=== PATIENT | female | born 1990 | race Caucasian/White ===

== ENCOUNTER 2017-07-03 07:55 | Emergency (ER) | payer OTHER ==
[~2017-07-03] VITALS: Ht 175.3 cm; Wt 122.5 kg
--- NOTE | 2017-07-03 08:02 | NUR ---
Margot pang in [facility] - 07/03/17 at 0804 by [facility] PT AMBULATED TO BED 3
[2017-07-03 08:03] VITALS: BP 112/63
--- NOTE | 2017-07-03 08:30 | NUR ---
patient is a 26 year old female brought in via private vehicle for c/o nausea, diarrhea and abdominal pain x two days. patient is alert and oriented x 4. respirations are even and unlabored. abdomen is round, soft. tender to left lower abdominal area when palpated. patient states three episodes of diarrhea this morning. patient states that she feels nauseated, but no episodes of vomiting. awaiting md evaluation.
[2017-07-03] MEDS ORDERED: KETOROLAC 60 MG/2 ML VIAL IM ONE (09:00)
[2017-07-03] MEDS ORDERED: LOPERAMIDE 2 MG CAP PO ONE (09:00)
--- NOTE | 2017-07-03 09:44 | NUR ---
Pt expresses feeling much better. Dr. Amaya made aware.
--- NOTE | 2017-07-03 10:22 | NUR ---
Patient discharged with v/s stable. Written and verbal after care instructions given and explained. Patient alert, oriented and verbalized understanding of instructions. Ambulatory with steady gait. All questions addressed prior to discharge. ID band removed. Patient advised to follow up with PMD. Rx of Imodium A-D given. Patient educated on indication of medication including possible reaction and side effects. Opportunity to ask questions provided and answered.
[2017-07-03 10:24] VITALS: BP 122/78
== END 2017-07-03 10:22 | disposition home or self-care (01) ==
LOC: MED 07:55
DX: R19.7 Diarrhea, unspecified (principal); R10.84 Generalized abdominal pain
CPT/HCPCS: 81002; 81025; 96372; 99283; J1885

== ENCOUNTER 2018-03-01 11:18 | Emergency (ER) | payer OTHER ==
[~2018-03-01] VITALS: Ht 172.7 cm; Wt 97.5 kg
[2018-03-01 12:07] VITALS: BP 108/62
--- NOTE | 2018-03-01 13:50 | NUR ---
C/O VAGINAL RASH/PAIN 06/20 THIS MORNING; DENIES DISCHARGE OR PAINFUL URINATION HX; DENIES RX; DENIES
--- NOTE | 2018-03-01 13:50 | NUR ---
PT AMBULATED TO BED 8
--- NOTE | 2018-03-01 14:00 | NUR ---
PA EVALUATING AT BEDSIDE
--- NOTE | 2018-03-01 14:08 | NUR ---
Female Photo Stylist accompanied female patient for VAGINAL EXAM
[2018-03-01 14:32] VITALS: BP 158/92
== END 2018-03-01 14:31 | disposition home or self-care (01) ==
LOC: MED 11:18
DX: N76.2 Acute vulvitis (principal)
CPT/HCPCS: 81002; 81025; 99283

== ENCOUNTER 2018-08-11 14:53 | Emergency (ER) | payer OTHER ==
[~2018-08-11] VITALS: Ht 172.7 cm; Wt 119.5 kg
[2018-08-11 15:05] VITALS: BP 158/100
--- NOTE | 2018-08-11 15:13 | NUR ---
Patient ambulated to bed 4. RN evaluating patient at bedside.
--- NOTE | 2018-08-11 15:22 | NUR ---
DR EVALUATED AT BEDSIDE
--- NOTE | 2018-08-11 15:26 | NUR ---
PT BIB SELF C/O SORE THROAT,R EAR PAIN X YESTERDAY. PT REPORTS PAIN TO R EAR WHEN TOUCHED. DENIES N/V/D OR FEVER. NO REDNESS OR SWELLING VISIBLE FROM OUTSIDE OF EAR. VSS. ER TO SEE PT. MED HX:DENIES
--- NOTE | 2018-08-11 15:55 | NUR ---
FLU SWAB COLLECTED
[2018-08-11] MEDS ORDERED: IBUPROFEN 400 MG TAB PO ONE ×2 (16:10→16:20)
[2018-08-11 16:26] VITALS: BP 152/98
--- NOTE | 2018-08-11 16:26 | NUR ---
Patient discharged with v/s stable. Written and verbal after care instructions given and explained. Patient alert, oriented and verbalized understanding of instructions. Ambulatory with steady gait. All questions addressed prior to discharge. ID band removed. Patient advised to follow up with PMD. Rx of IBUPROFEN, LORATADINE given. Patient educated on indication of medication including possible reaction and side effects. Opportunity to ask questions provided and answered.
== END 2018-08-11 16:26 | disposition home or self-care (01) ==
LOC: MED 14:53
DX: J02.8 Acute pharyngitis due to other specified organisms (principal); H65.91 Unspecified nonsuppurative otitis media, right ear
CPT/HCPCS: 87804; 99283

== ENCOUNTER 2019-03-17 12:16 | Emergency (ER) | payer OTHER ==
[~2019-03-17] VITALS: Ht 172.7 cm; Wt 111.1 kg
[2019-03-17 12:24] VITALS: BP 141/91
--- NOTE | 2019-03-17 12:30 | NUR ---
ASSISTED PT TO WAIT IN THE LOBBY AND INFORMED PT WILL HER IN WHEN A BED IS AVAILABLE.
[2019-03-17] MEDS ORDERED: SODIUM CHLORIDE FLUSH 10 ML SYR IVF STA (12:46)
--- NOTE | 2019-03-17 13:28 | NUR ---
PT PRESENTS TO THE ED WITH C/O VOMITING AND DIARRHEA FROM MIDNIGHT TO 0300 TODAY. PT STATES THAT SHE TOOK NO MEDICATIONS AT HOME. PT STATES THAT SHE HAS NO CP OR SOB. PT STATES THAT SHE DOES HAVE A HEADACHE AND RATES THE PAIN AT 4/10 AT THIS TIME. BED RAIL UP X 1, PT POSITIONED FOR COMFORT. ER MD TO SEE PT. KIMMY HX: DENIES RX: DENIES
[2019-03-17 13:36] LABS: BASOPHILS % (AUTO) 0.2 % (0.0-2.0); EOSINOPHILS % (AUTO) 0.1 % (0.0-4.0); HEMATOCRIT 42.8 % (36-48); HEMOGLOBIN 14.2 g/dL (12.0-16.0); LYMPHOCYTES # (AUTO) 0.8 K/uL (2.5-16.5); LYMPHOCYTES % (AUTO) 7.7 % (20.5-51.1); MEAN CORPUSCULAR HEMOGLOBIN 28 pg (27-31); MEAN CORPUSCULAR HGB CONC 33 g/dL (33-37); MEAN CORPUSCULAR VOLUME 83.6 fL (80-94); MONOCYTES # (AUTO) 0.4 K/uL (0.8-1.0); MONOCYTES % (AUTO) 3.8 % (1.7-9.3); NEUTROPHILS # (AUTO) 8.6 K/uL (1.8-7.7); NEUTROPHILS % (AUTO) 88.2 % (42.2-75.2); PLATELET COUNT (AUTO) 337 K/uL (140-450); RED BLOOD CELL COUNT(AUTO) 5.12 MIL/uL (4.20-5.40); RED CELL DISTRIBUTION WIDTH 14.1 % (11.6-13.7); WHITE BLOOD COUNT (AUTO) 9.8 K/uL (4.8-10.8)
[2019-03-17 14:11] LABS: ALBUMIN 3.6 g/dL (3.4-5.0); ANION GAP 14.3 (8-16); CARBON DIOXIDE 28.2 mmol/L (21-32); CREATININE 0.8 mg/dL (0.6-1.3); POTASSIUM 3.5 mmol/L (3.5-5.1)
--- NOTE | 2019-03-17 14:17 | NUR ---
PT RESTING IN BED USING CELLPHONE. WILL CONTINUE TO MONITOR.
--- NOTE | 2019-03-17 14:23 | NUR ---
Patient being evaluated by ER MD ZAMARRIPA at bedside.
[2019-03-17] MEDS ORDERED: NACL 0.9% 1,000 ML IV ONE (14:50)
[2019-03-17] MEDS ORDERED: ONDANSETRON 4 MG/2 ML VIAL IVP ONE (14:50)
[2019-03-17] MEDS ORDERED: KETOROLAC 30 MG/ML VIAL IVP ONE (14:50)
--- NOTE | 2019-03-17 16:33 | NUR ---
PT LAYING IN BED, REPORTS RELIEF IN SYMPTOMS, DENIES N/V/D OR PAIN AT THIS TIME. VSS. ALL NEEDS MET.
[2019-03-17 17:05] VITALS: BP 98/50
--- NOTE | 2019-03-17 17:05 | NUR ---
Patient discharged with v/s stable. Written and verbal after care instructions given and explained. Patient alert, oriented and verbalized understanding of instructions. Ambulatory with steady gait. All questions addressed prior to discharge. ID band removed. Patient advised to follow up with PMD. Rx of ZOFRAN ODT given. Patient educated on indication of medication including possible reaction and side effects. Opportunity to ask questions provided and answered.
== END 2019-03-17 17:05 | disposition home or self-care (01) ==
LOC: MED 12:16
DX: A08.4 Viral intestinal infection, unspecified (principal)
CPT/HCPCS: 36415; 80053; 85025; 96361; 96374; 96375; 99283; J1885; J2405; J7030